=== PATIENT | female | born 1975 | race Caucasian/White ===

== ENCOUNTER → 2017-01-30 | Outpatient (CLI) | payer BC | LOC: MC.RAD 10:58 | DX: Z12.31 Encounter for screening mammogram for malignant neoplasm of breast (principal) ==

== ENCOUNTER → 2018-02-23 | Outpatient (CLI) | payer BC | LOC: MC.RAD 09:40 | DX: Z12.31 Encounter for screening mammogram for malignant neoplasm of breast (principal) ==

== ENCOUNTER → 2019-02-25 | Outpatient (CLI) | payer BC | LOC: MC.RAD 15:19 | DX: Z12.31 Encounter for screening mammogram for malignant neoplasm of breast (principal) ==

== ENCOUNTER 2019-04-17 22:53 | Emergency (ER) | payer BC ==
[~2019-04-17] VITALS: Ht 160 cm; Wt 50.0 kg
[2019-04-18 00:10] VITALS: TEMP 98.4
[2019-04-18] MEDS ORDERED: NORCO 325 MG-51 TAB PO (02:21)
[2019-04-18 02:26] VITALS: BP 136/72; PULSE 72
== END 2019-04-18 02:34 | disposition home or self-care (01) ==
LOC: COL.ER 22:53
DX: S62.91XA Unspecified fracture of right hand, initial encounter for closed fracture (principal); W19.XXXA Unspecified fall, initial encounter; Y92.009 Unspecified place in unspecified non-institutional (private) residence as the place of occurrence of the external cause
CPT/HCPCS: Q4050

== ENCOUNTER → 2020-02-28 | Outpatient (CLI) | payer BC ==
[~2020-02-28] MED LIST: NORCO 325 MG-51 TAB PO
== END ==
LOC: MC.RAD 09:21
DX: Z12.31 Encounter for screening mammogram for malignant neoplasm of breast (principal)

== ENCOUNTER → 2021-03-01 | Outpatient (CLI) | payer BC | LOC: MC.RAD 14:26 | DX: Z12.31 Encounter for screening mammogram for malignant neoplasm of breast (principal); N64.89 Other specified disorders of breast ==

== ENCOUNTER → 2021-03-08 | Outpatient (CLI) | payer BC | LOC: MC.RAD 06:56 | DX: N64.89 Other specified disorders of breast (principal) ==

== ENCOUNTER → 2021-09-06 | Outpatient (CLI) | payer BC | LOC: MC.RAD 07:53 | DX: R92.8 Other abnormal and inconclusive findings on diagnostic imaging of breast (principal) ==

== ENCOUNTER → 2022-03-02 | Outpatient (CLI) | payer BC | LOC: MC.RAD 08:07 | DX: Z12.31 Encounter for screening mammogram for malignant neoplasm of breast (principal) ==

== ENCOUNTER → 2023-12-29 | Outpatient (CLI) | payer BC ==
[~2023-12-29] MED LIST changes: +Albuterol 0.083% Neb Soln 2.5 MG/3 ML UD IH ONE
== END ==
LOC: COL.CARD 12:14
DX: R06.00 Dyspnea, unspecified (principal)

== ENCOUNTER → 2024-03-15 | Outpatient (CLI) | payer BC ==
[~2024-03-15] MED LIST changes: -Albuterol 0.083% Neb Soln 2.5 MG/3 ML UD IH ONE
== END ==
LOC: MC.RAD 09:17
DX: Z12.31 Encounter for screening mammogram for malignant neoplasm of breast (principal)

== ENCOUNTER → 2024-06-04 | Outpatient (CLI) | payer BC ==
[~2024-06-04] MED LIST changes: +Iohexol 300 - 100 ML VIAL IV ONE; +NS 100 ML IV SCH
== END ==
LOC: COL.RAD 13:56
DX: R19.7 Diarrhea, unspecified (principal)
CPT/HCPCS: Q9967